=== PATIENT | male | born 1955 | race Two or more races ===

== ENCOUNTER 2018-09-07 10:36 | Emergency (ER) | payer SELFPAY ==
[~2018-09-07] VITALS: Ht 172.7 cm; Wt 86.2 kg
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
[2018-09-07] MEDS ORDERED: Thiamine 100 MG in IV D5W 50 ML IV SCH (11:00)
[2018-09-07] MEDS ORDERED: IV NS 0.9% 1,000 ML BAG IV ONE (11:00)
[2018-09-07 11:12] LABS: BASOPHILS # (AUTO) 0.1 /CMM (0.0-0.2); BASOPHILS % (AUTO) 0.9 % (0.0-2.0); HEMATOCRIT 39 % (39-51); HEMOGLOBIN 13.4 g/dL (13.5-17.5); LYMPHOCYTES # (AUTO) 3.9 /CMM (0.8-4.8); LYMPHOCYTES % (AUTO) 58.6 % (20.0-44.0); MEAN CORPUSCULAR HGB CONC 34 g/dl (31.0-36.0); MEAN CORPUSCULAR VOLUME 92 fL (80-96); MONOCYTES # (AUTO) 0.4 /CMM (0.1-1.30); MONOCYTES % (AUTO) 6.4 % (2.0-12.0); NEUTROPHILS # (AUTO) 2.2 /CMM (1.8-8.9); NEUTROPHILS % (AUTO) 33.1 % (43.0-81.0); PLATELET COUNT (AUTO) 539 /CMM (150-450); RED BLOOD CELL COUNT(AUTO) 4.22 MIL/uL (4.5-6.0); WHITE BLOOD COUNT (AUTO) 6.7 K/uL (4.3-11.0)
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
[2018-09-07 11:50] LABS: CALCIUM, SERUM 8.6 mg/dL (8.5-10.1); CREATININE 0.9 mg/dL (0.6-1.3); POTASSIUM 3.6 mmol/L (3.5-5.1)
[2018-09-07 11:58] LABS: ALBUMIN 3.5 g/dL (3.4-5.0); BILIRUBIN,DIRECT 0.1 mg/dL (0.0-0.2); BILIRUBIN,TOTAL 0.3 mg/dL (0.2-1.0); TOTAL PROTEIN, SERUM 7.5 g/dL (6.4-8.2)
--- NOTE | 2018-09-07 17:09 | NUR ---
PT GIVEN MEAL TRAY
--- NOTE | 2018-09-07 17:46 | NUR ---
PT DISCHARGED TO HOME FAMILY WAITING GIVEN DINNER TRAY AND DRESSED APPRORIATELY GIVEN TAP CARD FOR TRANSPORTATION [facility] GIVEN WELL PT STATES HE WANTS TO GO HOME.
[2018-09-07 17:48] VITALS: BP 109/68
== END 2018-09-07 17:49 | disposition home or self-care (01) ==
LOC: ER 10:44
DX: F10.10 Alcohol abuse, uncomplicated (principal); G93.40 Encephalopathy, unspecified; Y90.8 Blood alcohol level of 240 mg/100 ml or more
CPT/HCPCS: 36415; 70450; 80048; 80076; 80307; 85025; 96365; 99284; J3411; J7030; J7060; G0480